=== PATIENT | male | born 1985 | race Caucasian/White ===

== ENCOUNTER 2020-07-28 04:31 | Emergency (ER) | payer SELFPAY ==
[2020-07-28 05:06] VITALS: BP 116/67; PULSE 105; TEMP 99.5; BMI 33.6
[2020-07-28] MEDS ORDERED: IBUPROFEN 600 MG TABLET (FP) PO ONE ×2 (05:29→05:38)
[2020-07-28] MEDS ORDERED: ONDANSETRON *ODT* 4 MG TABLET SL ONE (05:29)
[2020-07-28] MEDS ORDERED: ONDANSETRON *ODT* 4 MG TABLET ONE (05:37)
== END 2020-07-28 05:58 | disposition home or self-care (01) ==
LOC: JER 04:31
DX: U07.1 COVID-19 (principal); R11.0 Nausea
CPT/HCPCS: 99283-25